=== PATIENT | female | born 1950 | race Caucasian/White ===

== ENCOUNTER 2021-11-13 09:54 | Day surgery (SDC) | payer MEDICARE ==
[2021-11-12 09:09] VITALS: BMI 47.0
[~2021-11-13 09:54] MED LIST: ACETAMINOPHEN TAB 500 MG TAB PO PRN; GABAPENTIN 300 MG CAP PO PRN; LACTATED RINGERS 1,000 ML IV SCH; LIDOCAINE 1% (10MG/ML) FOR IV START INTRADERMA PRN; MELOXICAM 7.5 MG TAB PO PRN; ONDANSETRON 4 MG/2 ML VIAL IVP ONE; TRANEXAMIC ACID 1,000 MG in SODIUM CHLORIDE 0.9% 100 ML IVPB PRN; fentaNYL (PF) 50 MCG/ML 2 ML AMP IV PRN
[2021-11-13] MEDS ORDERED: HYDROmorphone 0.2 MG/1 ML SYRINGE IVP PRN (10:42)
[2021-11-13] MEDS ORDERED: HYDROmorphone 0.5 MG/0.5 ML SYRINGE IVP PRN ×2 (10:42)
[2021-11-13] MEDS ORDERED: ONDANSETRON 4 MG/2 ML VIAL IVP PRN (10:42)
[2021-11-13] MEDS ORDERED: NALOXONE 0.4 MG/ML 1 ML VIAL IV PRN (10:42)
[2021-11-13] MEDS ORDERED: HYDROcodone/APAP 7.5-325MG 1 EACH TAB PO PRN ×2 (10:44)
[2021-11-13] MEDS ORDERED: SODIUM CHLORIDE 0.9% 1,000 ML IV SCH (10:45)
[2021-11-13] MEDS ORDERED: traMADol 50 MG TAB PO PRN ×2 (10:46)
[2021-11-13] MEDS ORDERED: DEXAMETHASONE SOD PHOSPHATE 4 MG/ML 1 ML VIAL IV ONE (10:55)
[2021-11-13] MEDS ORDERED: ROCURONIUM 10 MG/ML (5 ML VIAL) IV ONE (10:59)
[2021-11-13] MEDS ORDERED: TRANEXAMIC ACID 1,000 MG/10 ML VIAL ONE (10:59)
[2021-11-13] MEDS ORDERED: SODIUM CHLORIDE 0.9% IRRIG 1,000 ML BTL IRRIGATION ONE (10:59)
[2021-11-13] MEDS ORDERED: HEPARIN SODIUM,PORCINE 10,000 UNIT/ML 1 ML VIAL ONE (10:59)
[2021-11-13] MEDS ORDERED: NEOSTIGMINE 1 MG/ML 10 ML VIAL ONE (10:59)
[2021-11-13] MEDS ORDERED: PROPOFOL 10 MG/ML 20 ML VIAL IV ONE (10:59)
[2021-11-13] MEDS ORDERED: GLYCOPYRROLATE 0.2 MG/ML 2 ML VIAL ONE (10:59)
[2021-11-13] MEDS ORDERED: HYDROmorphone (PF) 1 MG/ML ONE (10:59)
[2021-11-13] MEDS ORDERED: SODIUM CHLORIDE 0.9% 100 ML BAG ONE (10:59)
[2021-11-13] MEDS ORDERED: fentaNYL (PF) 50 MCG/ML 2 ML AMP ONE (10:59)
[2021-11-13] MEDS ORDERED: LIDOCAINE 1% INJ 10MG/ML (20 ML MDV) ONE (10:59)
[2021-11-13] MEDS ORDERED: SUCCINYLCHOLINE CHLORIDE 100 MG/5 ML SYR IV ONE (10:59)
[2021-11-13] MEDS ORDERED: MIDAZOLAM 2 MG/2 ML VIAL ONE (10:59)
[2021-11-13] MEDS ORDERED: ceFAZolin 1,000 MG in SODIUM CHLORIDE 0.9% 1,000 ML IRRIGATION ONE (11:27)
[2021-11-13] MEDS ORDERED: ROPIVACAINE 5 MG/ML 30 ML VIAL MISCELLANE ONE ×2 (11:27→12:15)
--- NOTE | 2021-11-13 12:23 | P.OP ---
Date of Procedure: 11/13/21 Preoperative Diagnosis: Severe osteoarthritis right hip Postoperative Diagnosis: Severe osteoarthritis right hip Procedure(s) Performed: Right total hip arthroplasty with a direct anterior approach Implants: [employer] Polarstem standard size 2 [employer] R3, 3 hole hemispherical acetabular shell, 54 mm [employer] Reflection 6.5 mm cancellus screw, 20 mm 2 [employer] R3, XLPE 20 acetabular liner [employer] Oxinium femoral head 36 m, +4 All components were press-fit. The articulation is Oxinium on polyethylene. Anesthesia: GETA Surgeon: Javier Willard Stave Log Ripsaw Operator #1: Italia Bolden Estimated Blood Loss (ml): 100 Pathology: other (Femoral head) Condition: stable Disposition: PACU Indications for Procedure: After failure of conservative treatment we discussed the surgical and nonsurgical treatment options at length. Patient wishes to proceed with a total hip arthroplasty with a direct anterior approach. Complications specific to this procedure were discussed at length, including but not limited to infection, leg length discrepancy, dislocation, nerve injury, and fracture. Covid-19 was also discussed at length with the patient, and they are aware of the current policies and procedures. The patient was given the option of delaying surgery, but they elect to proceed knowing these risks. Patient is aware of all these complications and informed consent was obtained Operative Findings: The operative findings are consistent with severe osteoarthritis of the right hip Description of Procedure: Patient was seen and evaluated in the preoperative area and the consent was reviewed. The operative site was marked with a skin marker. The patient was then brought to the operating room and given preoperative antibiotics intravenously. 1 g of Tranexamic acid was also given intravenously. A general anesthetic was administered by the anesthesia department. The patient was then placed on the [place] table with the bony prominences well-padded. The hip area was then prepped with a ChloraPrep solution and draped in the usual sterile fashion. A universal timeout was then performed, which confirmed the patient's name, surgical site, ALLERGIES, and procedure being performed on the consent. Next the incision site was located at 1 cm distal and 2 cm lateral to the anterior superior iliac spine. The skin and subcutaneous tissues were sharply incised. Incision was carefully dissected down to the fascia overlying the tensor fascia abiel muscle. This fascia was then incised in line with the incision. Care was taken to stay laterally in order to avoid injuring the lateral femoral cutaneous nerve. Next, using blunt finger dissection, the tensor fascia abiel muscle was dissected off its investing fascia. The muscle was then carefully retracted laterally with a cobra retractor over the lateral neck of the femur. Next, the circumflex vessels were identified and cauterized using the AquaMantis device. The anterior hip capsule was then exposed. The capsule was then opened and an inverted T fashion. Cobra retractors were then placed intracapsularly. The retractors were maintained intracapsular throughout the procedure. The proximal femur was then visualized. Fluoroscopic x-rays were then taken in order to evaluate the preoperative leg lengths. A small amount of traction was placed on the leg. The femoral neck was then osteotomized appropriate level above the lesser trochanter. A small wedge of bone was then removed from the remaining femoral head. Next, using a corkscrew the femoral head was removed from the acetabulum. On gross visual inspection, the femoral head had complete loss of articular cartilage and multiple periarticular osteophytes. The femoral head was then measured. Attention was then turned to the acetabulum. The acetabulum was exposed and any remaining labrum was excised. Sequential reaming of the acetabulum was performed using fluoroscopic guidance until there was a good bed of bleeding cancellus bone. When the appropriate size was reached, a trial was then placed. The position and fit of the trial was checked with fluoroscopy. The trial was then removed. Then, using fluoroscopic guidance, the final implant was impacted at 20 of anteversion and 40 of abduction, and fully seated in the acetabulum. 2 screws were then placed in the acetabulum. Again fluoroscopy was used to check position of the screws. Next, the liner was then impacted, with a 20 elevated liner located in the anterior superior quadrant. Component locking was confirmed. Attention was then directed to the femur. With the aid of the [place] table, the femur was externally rotated to approximately 130, extended, and adducted under the opposite leg. A side hook was then placed under the proximal femur, and the side hook elevator was used to elevate the proximal femur while releasing the capsule. Retractors were then placed. A capsular release was performed, as well as a release of the conjoined tendon, which afforded excellent visualization of the proximal femur. Next, a box osteotome was used to lateralize the proximal femur. A frame hand was then used to locate the femoral canal. Sequential broaching was then performed with appropriate size which afforded excellent fixation in the proximal femur. A trial was then placed with appropriate head and neck, and the hip was gently reduced with the aid of the [place] table. Fluoroscopy was then used to check position of the components, as well as to ensure equal leg lengths. The hip was then gently dislocated and the trials were then removed. Final implants were then impacted and the hip was again reduced. Final fluoroscopic x-rays confirmed that the components were in anatomic position, as well as equal leg lengths. The hip was also taken through range of motion, and found to be stable. The hip was then copiously irrigated with antibiotic solution with pulsatile lavage. The hip was then irrigated with Irrisept solution. The soft tissues were then injected with a ropivacaine solution. A second dose of 1 g of Tranexamic acid was also given intravenously. Any blood collected by Cell [employer]ver was then returned to the patient at this time. The fascia was then closed with 2-0 strata fix suture. The subcutaneous tissue was closed with 3-0 Vicryl. The subcuticular tissue was closed with 3-0 strata fix suture. The skin was then closed with Exofin skin glue. After the glue and dried, and Optifoam silver impregnated dressing was applied. The patient was then transferred to the recovery room in stable condition. The construction assistant EMILIANA Rao was required due to the complexity of surgery, and the need for skilled hand frame surgical elastic knitter for positioning, draping, exposure, retraction, and closure of the wound.
[2021-11-13] MEDS ORDERED: SODIUM CHLORIDE 0.9% 1,000 ML IV ONE (12:26)
--- NOTE | 2021-11-13 12:59 | FL ---
Fluoroscopy HISTORY: Osteoarthritis right hip 55 seconds fluoroscopy time supplied to the referring clinician. 3 intraoperative C-arm images docum ent the procedure. See dictated report from orthopedic surgery.
[2021-11-13 13:02] VITALS: TEMP 96.8
[2021-11-13 13:08] VITALS: RESP 16
[2021-11-13] MEDS ORDERED: HYDROmorphone 0.5 MG/0.5 ML SYRINGE IVP ONE (13:49)
--- NOTE | 2021-11-13 15:11 | XR ---
Limited right hip HISTORY: Postop Single frontal view of the right hip Patient is status post right hip arthroplasty. There is anatomic alignment. Lucency is present within the soft tissues. Overlying soft tissues, technique and the exam is somewhat limited. Question some irregularity of the acetabulum medially, patient rotated however. impression: Exam is somewhat limited. Question cortical irregularity medial to the acetabular compone nt of patient's right hip arthroplasty.
[2021-11-13 17:06] VITALS: BP 108/63; PULSE 72
== END 2021-11-13 17:20 | disposition home health service (06) ==
LOC: OR 09:54
PROVIDERS: ATTEND Orthopaedic Surgery
DX: M16.11 Unilateral primary osteoarthritis, right hip (principal); E05.90 Thyrotoxicosis, unspecified without thyrotoxic crisis or storm; K21.9 Gastro-esophageal reflux disease without esophagitis; R00.2 Palpitations; E66.01 Morbid (severe) obesity due to excess calories; Z68.42 Body mass index [BMI] 45.0-49.9, adult; Z20.822 Contact with and (suspected) exposure to COVID-19; R06.00 Dyspnea, unspecified; R42 Dizziness and giddiness; R26.81 Unsteadiness on feet; F32.A Depression, unspecified; Z85.828 Personal history of other malignant neoplasm of skin; Z97.3 Presence of spectacles and contact lenses; Z87.440 Personal history of urinary (tract) infections; I35.1 Nonrheumatic aortic (valve) insufficiency; Z98.1 Arthrodesis status; Z90.710 Acquired absence of both cervix and uterus; Z90.49 Acquired absence of other specified parts of digestive tract; E89.0 Postprocedural hypothyroidism; Z79.899 Other long term (current) drug therapy; Z79.1 Long term (current) use of non-steroidal anti-inflammatories (NSAID); Z79.890 Hormone replacement therapy; Z88.6 Allergy status to analgesic agent; Z91.018 Allergy to other foods; Z88.2 Allergy status to sulfonamides; Z88.5 Allergy status to narcotic agent
CPT/HCPCS: 97162; 86891; 88300; 87635; 73501; 27130; C1776; J2250; J1644; J1100; J2710; J0690 ×2; J2405; J2001; J3010; J1170 ×2; J2795; J0330; J2704